=== PATIENT | female | born 2000 | race Asian ===

== ENCOUNTER 2020-06-21 02:03 | Emergency (ER) | payer BC ==
[~2020-06-21] VITALS: Ht 147.3 cm; Wt 40.7 kg
--- NOTE | 2020-06-21 02:10 | NUR ---
EKG IN TRIAGE AT THIS TIME
[2020-06-21] MEDS ORDERED: SODIUM CHLORIDE FLUSH 10ML SYR IVF ONE (02:30)
[2020-06-21 02:46] LABS: BASOPHILS % (AUTO) 1 % (0-1); EOSINOPHILS % (AUTO) 1 % (1-7); LYMPHOCYTES % (AUTO) 32 % (22-44); MD NO; MEAN CORPUSCULAR HEMOGLOBIN 28.2 pg (27.0-34.8); MEAN CORPUSCULAR HGB CONC 32.8 g/dL (32.4-35.8); MEAN PLATELET VOLUME 6.9 fL (7.4-10.4); MONOCYTES % (AUTO) 5 % (2-9); NEUTROPHILS % (AUTO) 62 % (42-75); PLATELET COUNT 271 x10^3/uL (130-400); RED BLOOD COUNT 4.68 x10^6/uL (3.82-5.3); RED CELL DISTRIBUTION WIDTH 12.5 % (9.6-15.2)
[2020-06-21 02:48] LABS: MICROSCOPIC AUTO
[2020-06-21 02:54] LABS: ALANINE AMINOTRANSFERASE 18 U/L (12-78); ALBUMIN 4.1 g/dL (3.4-5.0); ANION GAP 13 mmol/L (5-15); CALCIUM 8.7 mg/dL (8.5-10.1); CHLORIDE 106 mmol/L (98-107); CREATININE 1.13 mg/dL (0.55-1.02)
[2020-06-21 02:59] LABS: ALKALINE PHOSPHATASE 40 U/L (45-117); BILIRUBIN,TOTAL 0.3 mg/dL (0.2-1.0)
--- NOTE | 2020-06-21 03:04 | NUR ---
pt resting with no needs at this time. pt waiting for ct. call light in reach
[2020-06-21] MEDS ORDERED: ONDANSETRON 2MG/ML, 2ML ONE (03:23)
[2020-06-21] MEDS ORDERED: ONDANSETRON 2MG/ML, 2ML IVPush ONE (03:30)
[2020-06-21 03:41] VITALS: BP 123/71
[2020-06-21] MEDS ORDERED: OMNIPAQUE 350 MG/ML, 100ML BOTTLE ONE (03:41)
[2020-06-21] MEDS ORDERED: PROMETHAZINE 25 MG/ML, 1ML ONE (04:40)
--- NOTE | 2020-06-21 04:51 | NUR ---
Patient given discharge instructions and they have confirmed that they understand the instructions. Patient ambulatory with steady gait.
[2020-06-21] MEDS ORDERED: PROMETHAZINE 25 MG/ML, 1ML IM ONE (05:00)
== END 2020-06-21 04:53 | disposition home or self-care (01) ==
LOC: ED 04:47
DX: R10.32 Left lower quadrant pain (principal); R10.31 Right lower quadrant pain
CPT/HCPCS: 36415; 74177; 80053; 81001; 83690; 84703; 85025; 87086; 93005; 96372; 96374; 99285; J2405; J2550; Q9967